=== PATIENT | male | born 1985 | race Caucasian/White ===

== ENCOUNTER 2017-07-28 15:09 | Emergency (ER) | payer BC ==
--- NOTE | 2017-07-28 17:03 | RAD ---
Indication: Knee injury. 2 views of left knee are reviewed. There is no fracture noted. There appears to be patella louis noted. Infrapatellar tendon tear is not excluded with soft tissue swelling inferior to the patella. IMPRESSION: Soft tissue swelling inferior to the patella. Infrapatellar tendon injury is not excluded. Clinical correlation is suggested. No fracture is noted.
--- NOTE | 2017-07-28 18:31 | ED ---
Lower Extremity - HPI Summary HPI Summary: Patient presents to the ED with right knee deformity after slipping on the ice this morning. He states he felt like his lower leg went one way and the upper leg went the other direction. Denies hip or ankle pain. Pulses +2 bilaterally. No ecchymosos is noted. Swelling to the lateral and anterior portion of the knee with obvious deformity and patella is noted to be in the superior position in reference to the knee. He is unable to flex, extend or twist at the knee. He was given morphine prior to arrival in the ambulance. He feels the knee is completely detaches and notes to a 9/10 pain. No numbness or tingling. Denies other health concerns. - History of Current Complaint Chief Complaint: EDExtremityLower Stated Complaint: RT KNEE INJURY Time Seen by Provider: 07/28/17 15:11 Hx Obtained From: Patient Mechanism Of Injury: Twisted Onset of Pain: Hours Onset/Duration: Hours Severity Initially: Mild Severity Currently: Mild Pain Intensity: 4 Pain Scale Used: 0-10 Numeric Timing: Constant Location: Is Discrete @ - right knee Character Of Pain: Aching Associated Signs And Symptoms: Positive: Swelling Aggravating Factor(s): Other - unable to stand Alleviating Factor(s): Rest Able to Bear Weight: No - Risk Factors Gout Risk Factors: Negative DVT Risk Factors: Negative Septic Arthritis Risk Factor: Negative - Allergies/Home Medications Allergies/Adverse Reactions: Allergies Allergy/AdvReac Type Severity Reaction Status Date / Time Amoxicillin Allergy Hives Verified 07/28/17 15:19 PMH/Surg Hx/FS Hx/Imm Hx Previously Healthy: Yes - Immunization History Hx Pertussis Vaccination: No Immunizations Up to Date: Unable to Obtain/Confirm Infectious Disease History: No Infectious Disease History: Denies: Traveled Outside the [place] in Last 30 Days - Social History Occupation: Employed Full-time Lives: With Family Alcohol Use: Occasionally Hx Substance Use: No Substance Use Type: Reports: None Hx Tobacco Use: No Smoking Status (MU): Never Smoked Tobacco Review of Systems Constitutional: Negative Eyes: Negative Cardiovascular: Negative Respiratory: Negative Genitourinary: Negative Positive: no symptoms reported, see HPI Positive: Arthralgia, Myalgia, Decreased ROM, Edema Skin: Negative Neurological: Negative All Other Systems Reviewed And Are Negative: Yes Physical Exam Triage Information Reviewed: Yes Vital Signs On Initial Exam: Initial Vitals Temp Pulse Resp BP Pulse Ox 98.3 F 64 16 142/83 95 07/28/17 15:14 07/28/17 15:14 07/28/17 15:14 07/28/17 15:14 07/28/17 15:14 Vital Signs Reviewed: Yes Appearance: Positive: Well-Appearing, Well-Nourished Skin: Positive: Warm, Skin Color Reflects Adequate Perfusion Head/Face: Positive: Normal Head/Face Inspection Eyes: Positive: EOMI, IVJAY, Conjunctiva Clear Neck: Positive: Supple, Nontender, No Lymphadenopathy Respiratory/Lung Sounds: Positive: Clear to Auscultation Cardiovascular: Positive: Normal, RRR, Pulses are Symmetrical in both Upper and Lower Extremities Musculoskeletal: Positive: Pain @ - right knee with swelling Neurological: Positive: Speech Normal Diagnostics - Vital Signs Vital Signs Temp Pulse Resp BP Pulse Ox 07/28/17 15:14 98.3 F 64 16 142/83 95 - Laboratory Lab Statement: Any lab studies that have been ordered have been reviewed, and results considered in the medical decision making process. Lower Extremity Course/Dx - Course Course Of Treatment: Pain in the right knee with swelling and obvious deformity. IMPRESSION: Soft tissue swelling inferior to the patella. Infrapatellar tendon injury is. not excluded. Clinical correlation is suggested. No fracture is noted. Unable to perform a physical exam d/t pain. (ortho) consulted at 6:10p who suggests knee immobilizer and follow up with Dr. Gipson for surgery. Likely patellar tendon injury d/t patella louis and soft tissue swelling. Crutches given and rx for pain medications. Note given for work x 1 week to be extended by ORTHO. - Diagnoses Provider Diagnoses: Patellar tendon rupture Discharge - Discharge Plan Condition: Stable Disposition: HOME Prescriptions: HYDROcodone/ACETAM 10-325 MG(N 1 tab PO Q6H #16 tab MDD 4 Patient Education Materials: Knee Immobilizer (ED), Tendon Rupture (ED) Forms: *Work Release Referrals: No Primary Care Phys,NOPCP [Primary Care Provider] - Alexandr Faustin MD [Medical Doctor] - 2 Days (patellar tendon rupture - to see Dr. Gipson within 2 days) Additional Instructions: please call office tomorrow to schedule a follow up with Dr. Gipson tell the office Dr. Gipson is expecting your call ibuprofen 600mg three times daily If symptoms are not well controlled with ibuprofen, take the hydrocodone as needed for pain. Crutches Complete non-weight bearing on the leg Ice to the knee as tolerated If you develop any worsening or changing symptoms - return to the ED Note is given for work x 1 week.
[2017-07-28 19:00] VITALS: BP 139/83
== END 2017-07-28 18:58 | disposition home or self-care (01) ==
LOC: ED 15:09
DX: S76.111A Strain of right quadriceps muscle, fascia and tendon, initial encounter (principal); W00.0XXA Fall on same level due to ice and snow, initial encounter; Y92.9 Unspecified place or not applicable
CPT/HCPCS: 99282

== ENCOUNTER 2017-08-05 10:39 | Day surgery (SDC) | payer BC ==
[~2017-08-05 10:39] MED LIST: Buffered Lidocaine 0.9% SYRIN* 5 ML/SYR SYRINGE INTRADERM ONE; Dexamethasone IV* 4 MG/ML 1 ML (4 MG) IV SLOW PU ONE; Famotidine IV* 10 MG/ML 2 ML (20 mg) IV ONE
[2017-08-05] MEDS ORDERED: Clindamycin 900 MG IVPREMIX(* 900 MG/50 ML SDV IV ONE (11:25)
[2017-08-05] MEDS ORDERED: Famotidine IV* 10 MG/ML 2 ML (20 mg) ONE (11:25)
[2017-08-05] MEDS ORDERED: Buffered Lidocaine 0.9% SYRIN* 5 ML/SYR SYRINGE ONE (11:25)
[2017-08-05] MEDS ORDERED: Dexamethasone IV* 4 MG/ML 1 ML (4 MG) ONE (11:25)
[2017-08-05] MEDS ORDERED: Atracurium* 10 MG/ML 10 ML VIAL ONE (12:16)
[2017-08-05] MEDS ORDERED: fentaNYL* 50 MCG/ML 5 ML VIAL (250 MCG VIAL) ONE (12:16)
[2017-08-05] MEDS ORDERED: Ketorolac INJ* 30 MG/ML 1 ML VIAL ONE (12:17)
[2017-08-05] MEDS ORDERED: Ondansetron INJ* 2 MG/ML VIAL ONE (12:17)
[2017-08-05] MEDS ORDERED: Lidocaine 2% PF * 5 ML VIAL ONE (12:17)
[2017-08-05] MEDS ORDERED: Midazolam* 1 MG/ML 10 ML VIAL (10 MG) ONE (12:17)
[2017-08-05] MEDS ORDERED: Propofol* 10 MG/ML 20 ML BTL IV PUSH ONE (12:17)
[2017-08-05] MEDS ORDERED: Glycopyrrolate IV* 0.2 MG/ML 1 ML VIAL ONE (13:11)
[2017-08-05] MEDS ORDERED: Bupivacaine 0.25% SDV* 30 ML ONE (13:14)
[2017-08-05] MEDS ORDERED: fentaNYL* 50 MCG/ML 2 ML VIAL (100 MCG VIAL) ONE ×3 (13:23→15:04)
[2017-08-05] MEDS ORDERED: DiMENhydriNATE IV* 50 MG/ML VIAL IV PUSH PRN (13:28)
[2017-08-05] MEDS ORDERED: HYDROmorphone INJ* 1 MG/ML CARPUJECT SYRINGE IV PRN (13:28)
[2017-08-05] MEDS ORDERED: Naloxone* 0.4 MG/ML 1 ML VIAL IV PRN (13:28)
[2017-08-05] MEDS ORDERED: Ondansetron INJ* 2 MG/ML VIAL IV PRN (13:28)
[2017-08-05] MEDS ORDERED: oxyCODONE/Acetamin 5/325 MG* TAB ONE ×2 (14:49→15:14)
[2017-08-05] MEDS: fentaNYL* 50 MCG/ML 2 ML VIAL (100 MCG VIAL) IV PRN ×3 (14:51→15:08)
[2017-08-05] MEDS: oxyCODONE/Acetamin 5/325 MG* TAB PO PRN ×2 (15:02→15:18)
[2017-08-05 16:02] VITALS: BP 149/95
--- NOTE | 2017-08-06 01:13 | OP ---
DATE OF OPERATION: 08/05/17 - [facility] DATE OF : 87 SURGEON: Alexandr Faustin MD ASTRONAUTICAL ENGINEER: [employer]. Yenny's assistance was necessary for positioning, retraction, help in instrumentation and closure. ANESTHESIOLOGIST: Dr. Mcgovern. ANESTHESIA: General endotracheal anesthesia with local anesthesia provided by the surgeon. PRE-OP DIAGNOSIS: Right patellar tendon tear. POST-OP DIAGNOSIS: Right patellar tendon tear. OPERATIVE PROCEDURE: Primary repair of right patellar tendon tear. TOURNIQUET TIME: None. ESTIMATED BLOOD LOSS: 50 cc. COMPLICATIONS: None. IMPLANTS: None. DRAINS: None. STATUS: Stable from the operating room to recovery room and then home. INDICATIONS FOR THE PROCEDURE: Beck sustained a right patellar tendon injury falling on the ice. He has had loss of his extensor mechanism. Both operative and nonoperative treatment alternatives were reviewed further. The nature and risks of surgery were reviewed in careful detail in the office as well as in the preoperative holding area. Discussion regarding the risks of surgery included, but were not limited to infection, wound problems, nerve injury, neuroma, RSD, persistent symptoms, failure to heal, re-rupture, and even a remote chance of catastrophic complication including a loss of limb. We also discussed that he may have an extensor lag and weakness. DESCRIPTION OF PROCEDURE: The patient was seen in the preoperative holding unit and an informed written consent was obtained. The appropriate extremity was marked. The patient was then brought to the operating room and carefully positioned on the operating room table. Anesthesia was induced. All bony prominences were padded with great care. A chlorhexidine based pre-scrub was performed followed by a standard prep and drape with ChloraPrep. A surgical safety pause was then conducted in which we confirmed the appropriate patient, extremity, planned procedure, availability of equipment, indication and administration of prophylactic antibiotics and DVT prophylaxis in the form of compression boot on the nonsurgical extremity. A well-padded thigh tourniquet had been applied prior to prepping and draping. I utilized an approximately 10 cm midline incision over the anterior knee. This was taken down to the level of the periosteum. There was a large defect at the inferior pole of the patella with an obvious rupture of the patellar tendon. I could see right into the knee joint. There was a large hematoma, which was debrided and copiously irrigated. The patellar tendon did have a few limbs in the rupture. At this time, I did expose the inferior pole of the patella and used the rongeur to make a nice bony trough for the repair. I utilized a 2.4 mm drill to drill 3 longitudinal bone tunnels in the patella. Two #5 Ethibond sutures were used to make a Krackow stitch in the patellar tendon with 4 limbs proximally. A suture passer was placed through the bone tunnels in the patella to pull the limbs of the #5 Ethibond proximally through the patella. The medial and lateral bone tunnels, each had one limb of #5 Ethibond and the middle tunnel had the two middle limbs of the Ethibond. I put tension on these sutures and this approximated the patellar tendon nicely to the inferior pole of the patella. At this time, the #5 Ethibond sutures were passed under the quad tendon, so that the two ends would not strangulate the tendon. I then tied knots in the #5 Ethibond to secure the patellar tendon to the inferior pole of the patella. This was a very sturdy and nice repair. At this time, #1 Vicryl was utilized to repair the free strands of the patellar tendon that was not included in the Krackow stitch as well as the retinaculum and paratenon layers. The wound was copiously irrigated at this point and then the skin was closed in layers utilizing #1 Vicryl for a deep layer, 3-0 Monocryl for dermal layer and skin mariel on the skin. The leg was kept in full extension throughout and a sterile dressing was placed and then a hinged knee brace locked in full extension. The patient was then awakened from anesthesia and transferred back to the recovery room in stable condition. There were no complications. All needle and sponge counts were correct at the end of the case. ATTESTATION: I attest that I was present, scrubbed and performed the entire procedure myself. POSTOPERATIVE PLAN: The patient will remain with the leg in full extension for 2 weeks with minimal weightbearing and crutches. In 2 weeks, I will see him in the office and we will likely remove the mariel and advance per the protocol. [id number]/CPS #: [id number] [facility]PITALRyan
== END 2017-08-05 16:36 | disposition home or self-care (01) ==
LOC: OR 10:39
PROVIDERS: ATTEND Orthopaedic Surgery
DX: M66.261 Spontaneous rupture of extensor tendons, right lower leg (principal)
CPT/HCPCS: A9270-GY; J1100; J1885; J2250; J2405; J2704; J3010

== ENCOUNTER 2018-07-04 09:58 | Emergency (ER) | payer BC ==
[2018-07-04 10:23] VITALS: BP 138/85
--- NOTE | 2018-07-04 12:05 | UC ---
UC General HPI - HPI Summary HPI Summary: 2 day hx head congestion, cough, bodyaches, subjective F/C's and diarrhea. - History of Current Complaint Chief Complaint: UCGeneralIllness Stated Complaint: FEVER Time Seen by Provider: 07/04/18 11:53 Hx Obtained From: Patient Onset/Duration: Gradual Onset Timing: Constant Pain Intensity: 2 Associated Signs & Symptoms: Negative: Abdominal Pain, Chest Pain, Nausea, Vomiting, Wheezing - Allergy/Home Medications Allergies/Adverse Reactions: Allergies Allergy/AdvReac Type Severity Reaction Status Date / Time amoxicillin Allergy Hives Verified 07/04/18 10:19 Home Medications: Home Medications Ibuprofen TAB* [Motrin TAB* 600 MG] 600 mg PO Q6H PRN 07/04/18 [History Confirmed 07/04/18] PMH/Surg Hx/FS Hx/Imm Hx Cardiovascular History: Hypertension - tx with diet/exercise - Surgical History Surgical History: Yes Surgery Procedure, Year, and Place: osteocondroma removed from right knee 20+ years ago. appendectomy 15 years ago approx. wisdom teeth removed. right knee 2017 - Family History Known Family History: Positive: Non-Contributory - Social History Occupation: Employed Full-time Alcohol Use: Occasionally Substance Use Type: None Smoking Status (MU): Never Smoked Tobacco - Immunization History Vaccination Up to Date: Yes Review of Systems All Other Systems Reviewed And Are Negative: Yes Constitutional: Positive: Fever, Chills Skin: Positive: Negative Eyes: Positive: Negative ENT: Positive: Sinus Congestion Respiratory: Positive: Cough Cardiovascular: Positive: Negative Gastrointestinal: Positive: Diarrhea Genitourinary: Positive: Negative Motor: Positive: Negative Neurovascular: Positive: Negative Musculoskeletal: Positive: Myalgia Neurological: Positive: Negative Psychological: Positive: Negative Is Patient Immunocompromised?: No Physical Exam Triage Information Reviewed: Yes Appearance: Well-Appearing Vital Signs: Initial Vital Signs Temp 98.5 F 07/04/18 10:18 Pulse 98 07/04/18 10:18 Resp 18 07/04/18 10:18 BP 138/85 07/04/18 10:18 Pulse Ox 99 07/04/18 10:18 Vital Signs Reviewed: Yes Eyes: Positive: Conjunctiva Clear ENT: Positive: Pharynx normal, Nasal congestion, Nasal drainage - clear, TMs normal. Negative: Sinus tenderness Neck: Positive: Supple, Nontender, No Lymphadenopathy Respiratory: Positive: Lungs clear, Normal breath sounds, Other: - NPC Cardiovascular: Positive: RRR, No Murmur Abdomen Description: Positive: Nontender, No Organomegaly, Soft Bowel Sounds: Positive: Present Musculoskeletal: Positive: ROM Intact Neurological: Positive: Alert Psychological: Positive: Age Appropriate Behavior Skin Exam: Normal Skin: Negative: Rashes Diagnostics - Laboratory Diagnostic Studies Completed/Ordered: Influenza A positive Course/Dx - Course Course Of Treatment: + influenza. no concern for pneumonia. pt declined Tamiflu. - Diagnoses Provider Diagnosis: Influenza A Discharge - Sign-Out/Discharge Documenting (check all that apply): Patient Departure All imaging exams completed and their final reports reviewed: No Studies - Discharge Plan Condition: Stable Disposition: HOME Patient Education Materials: Influenza (DC) Forms: *Work Release Referrals: Farrah URIOSTEGUI,Calos Rajput [Primary Care Provider] - 7 Days - Billing Disposition and Condition Condition: STABLE Disposition: Home - Attestation Statements Provider Attestation: I was available for consult. This patient was seen by the SOPHY. The patient was not presented to, seen by, or examined by me. -Amado
== END 2018-07-04 12:16 | disposition home or self-care (01) ==
LOC: UCCORT 09:58
DX: J09.X2 Influenza due to identified novel influenza A virus with other respiratory manifestations (principal); Z88.0 Allergy status to penicillin; I10 Essential (primary) hypertension
CPT/HCPCS: 99211; G0463